=== PATIENT | female | born 1980 | race Caucasian/White ===

== ENCOUNTER 2018-07-29 18:53 | Inpatient (IN) | payer OTHER ==
[~2018-07-29] VITALS: Ht 177.8 cm; Wt 75.5 kg
[2018-07-29 18:56] VITALS: BP 124/74
[2018-07-29 19:22] LABS: URINE BILIRUBIN NEGATIVE (Negative); URINE BLOOD NEGATIVE (Negative); URINE CLARITY CLEAR; URINE COLOR YELLOW; URINE GLUCOSE-RANDOM* NEGATIVE (Negative); URINE KETONES TRACE (Negative); URINE LEUKOCYTES-REFLEX NEGATIVE (Negative); URINE NITRITE-REFLEX NEGATIVE (Negative); URINE PROTEIN (DIPSTICK) NEGATIVE (Negative); URINE SPECIFIC GRAVITY 1.025 (1.005-1.035); URINE UROBILINOGEN 0.2 E.U./dl (0.2-1.0)
[2018-07-29] MEDS ORDERED: FOCALIN10 MG PO (19:26)
[2018-07-29] MEDS ORDERED: WELLBUTRIN XL300 MG PO (19:27)
[2018-07-29] MEDS ORDERED: VIVACTIL10 MG PO (19:28)
[2018-07-29] MEDS ORDERED: NEXIUM40 MG PO (19:29)
[2018-07-29] MEDS ORDERED: REVIA 50 MG TAB50 M1 PO (19:29)
[2018-07-29] MEDS ORDERED: CELEBREX 200 M200 M1 PO (19:30)
[2018-07-29] MEDS ORDERED: XANAX1 MG PO (19:30)
[2018-07-29] MEDS ORDERED: BENADRYL25 MG PO (19:30)
[2018-07-29 19:32] LABS: ABSOLUTE NEUTROPHILS 6.8 thou/uL (1.4-8.2); BASOPHILS 0.2 % (0.0-2.0); EOSINOPHILS 2.1 % (0.0-3.0); HEMATOCRIT 43.9 % (37.0-47.0); LYMPHOCYTES 14.2 % (24.0-44.0); MCH 31.6 pg (26.0-34.0); MCHC 34.2 g/dL (28.0-37.0); MCV 92.5 fL (80.0-100.0); MONOCYTES 5.1 % (1.0-8.0); PLATELET COUNT 279 thou/uL (150-400); POLYS 78.4 % (36.0-66.0); RBC 4.74 mil/uL (4.20-5.00); RDW 13.8 % (10.5-14.5); WBC 8.7 thou/uL (4.0-11.0)
[2018-07-29 19:36] LABS: CALCIUM 8.9 mg/dL (8.5-10.1); CREATININE 0.9 mg/dL (0.6-1.0); POTASSIUM 3.3 mmol/L (3.5-5.1)
--- NOTE | 2018-07-29 19:36 | NUR ---
PATIENT TO RESTROOM EMERGENTLY FOR BOWEL MOVEMENT
[2018-07-29 19:42] LABS: ALBUMIN 3.7 g/dL (3.4-5.0); DIRECT BILIRUBIN 0.2 mg/dL (<0.1-0.3); TOTAL BILIRUBIN 0.6 mg/dL (<0.1-1.0)
[2018-07-29 21:46] VITALS: BP 113/74
[2018-07-29] MEDS ORDERED: ATIVAN1 MG PO (22:20)
--- NOTE | 2018-07-29 22:48 | NUR ---
PT arrived on unit as admit from ED into room 418. Pt A&Ox4, able to make needs known, ambulatory with steady gait. VSS. No SOA or difficulty breathing. Pt reports pain is considerably better now than upon arrival to ED. Pt reports nausea has also decreased and requested a snack. Pt orientated to room, call light, fall precautions and states understanding.Pt pleasant and cooperative with nursing hx and assessment. Pt made aware of when next anti nausea medication avilable. Pt currently resting in bed, call light within reach, will continue to be monitored.
[2018-07-30] VITALS (7 sets, daily range): BP systolic 109–115; BP diastolic 65–73
[2018-07-30 05:42] LABS: HEMATOCRIT 35.6 % (37.0-47.0); MCH 31.3 pg (26.0-34.0); MCHC 33.6 g/dL (28.0-37.0); RBC 3.83 mil/uL (4.20-5.00); RDW 13.4 % (10.5-14.5); WBC 7.3 thou/uL (4.0-11.0)
[2018-07-30] MEDS ORDERED: NORCO 5-325 TA1 EACH PO (13:53)
[2018-07-30] MEDS ORDERED: ONDANSETRON HCL4 M2 PO (13:53)
--- NOTE | 2018-07-30 15:52 | NUR ---
DISCHARGE PAPERS GONE OVER WITH PATIENT SIGNED AND COPY IN CHART ORIGINAL WITH PATIENT. ALL BELONGINGS PACKED AND SENT WITH PATIENT. IV ACSESS DCD AND RX GIVEN TO PATIENT.
--- NOTE | 2018-08-04 12:06 | PATH ---
[facility] [place] [address] PATHOLOGY RPT PROCEDURE Name: ADDIS GILES Room #: 418-P DIS IN M.R.#: [id number] Admission: 07/29/18 Date of : 78 Discharge: 07/30/18 Report #: [id number] Path Case #: [id number] [facility] Accession Number: [id number] . 01 Material submitted: . APPENDIX . 01 Clinical history: . Acute appendicitis . 02 Diagnosis: Appendix, appendectomy: - Mild acute appendicitis. - Appendiceal lumen impacted by fecal material and calcifications. . (IUV:mml; 08/01/2018) QL/08/01/2018 . 02 Electronically signed: . Promise Patterson MD, Pathologist NPI- [id number] . 01 Gross description: . The specimen is received in formalin, labeled "Addis Giles, appendix" and consists of an appendix measuring 7.5 cm in length and ranging from 0.4-0.6 cm in diameter with mesoappendix measuring 6.6 x 2.0 cm. The serosa is pacheco and smooth. The proximal margin is closed with balwinder and inked black. Sectioning reveals a dilated lumen (up to 0.5 cm) containing brown fecal material and no mucosal lesions. The specimen is entirely submitted in A1-A4. (SDY; 07/31/2018) SYU/SYU . 02 Pathologist provided ICD-10: K35.80 . 02 CPT . 702795 Specimen Comment: A courtesy copy of this report has been sent to Specimen Comment: [phone], , . Specimen Comment: Report sent to ,DR MORA / DR PRIETO Specimen Comment: A duplicate report has been generated due to demographic updates. Performed at: [address] [facility] [place] [id number] MD Flynn Figueroa MD Phone: [phone] [address] [address] PATHOLOGY RPT PROCEDURE Name: ADDIS GILES Room #: 418-P DIS IN M.R.#: [id number] Admission: 07/29/18 Date of : 78 Discharge: 07/30/18 Report #: [id number] Path Case #: [id number] Performed at: 02 [facility] [place] [address], [place], [place] [id number] MD Promise Patterson MD Phone: [phone]
== END 2018-07-30 16:00 | disposition home or self-care (01) | DRG 341 ==
LOC: ER 18:53 → 4E 21:11 → EROBS 21:11 → 4E 21:49 → ENTRNSPT 07-30 15:44 → EDTRNSPTSTS 07-30 15:45 → 4E 07-30 16:00
PROVIDERS: Nurse Practitioner; ADMIT Hospitalist
PROC: 0DTJ4ZZ Resection of Appendix, Percutaneous Endoscopic Approach (ICD-10-PCS; principal; 2018-07-30)
DX: K35.80 Unspecified acute appendicitis (principal); E43 Unspecified severe protein-calorie malnutrition; F32.9 Major depressive disorder, single episode, unspecified; K52.9 Noninfective gastroenteritis and colitis, unspecified; E87.6 Hypokalemia; E83.42 Hypomagnesemia; F41.9 Anxiety disorder, unspecified; E86.0 Dehydration; K21.9 Gastro-esophageal reflux disease without esophagitis; Z79.899 Other long term (current) drug therapy
CPT/HCPCS: 10084; 50010; 50101; 50249; 50411; 50555; 50558; 50739; 50740; 50962; 51975; 52265; 53307; 53310; 54022; 54118; 56525; 56526; 62110; 62900; 70005

== ENCOUNTER 2018-08-04 20:15 | Inpatient (IN) | payer OTHER ==
[~2018-08-04] VITALS: Ht 177.8 cm; Wt 74.8 kg
[~2018-08-04 20:15] MED LIST: ATIVAN1 MG PO; BENADRYL25 MG PO; CELEBREX 200 M200 M1 PO; FOCALIN10 MG PO; NEXIUM40 MG PO; NORCO 5-325 TA1 EACH PO; ONDANSETRON HCL4 M2 PO; REVIA 50 MG TAB50 M1 PO; VIVACTIL10 MG PO; WELLBUTRIN XL300 MG PO; XANAX1 MG PO
[2018-08-04 20:16] VITALS: BP 109/75
[2018-08-04 20:34] LABS: URINE BILIRUBIN NEGATIVE (Negative); URINE BLOOD 2+ (Negative); URINE CLARITY CLEAR; URINE COLOR YELLOW; URINE GLUCOSE-RANDOM* NEGATIVE (Negative); URINE KETONES NEGATIVE (Negative); URINE LEUKOCYTES-REFLEX 2+ (Negative); URINE NITRITE-REFLEX NEGATIVE (Negative); URINE PROTEIN (DIPSTICK) NEGATIVE (Negative); URINE SPECIFIC GRAVITY < 1.005 (1.005-1.035); URINE UROBILINOGEN 0.2 E.U./dl (0.2-1.0)
[2018-08-04 20:44] LABS: ABSOLUTE NEUTROPHILS 7.7 thou/uL (1.4-8.2); BASOPHILS 0.3 % (0.0-2.0); EOSINOPHILS 5.6 % (0.0-3.0); HEMATOCRIT 44.7 % (37.0-47.0); HEMOGLOBIN 15.4 gm/dL (12.0-15.0); LYMPHOCYTES 10.6 % (24.0-44.0); MCH 31.8 pg (26.0-34.0); MCHC 34.4 g/dL (28.0-37.0); MCV 92.4 fL (80.0-100.0); PLATELET COUNT 241 thou/uL (150-400); POLYS 78.5 % (36.0-66.0); RBC 4.84 mil/uL (4.20-5.00); RDW 13.4 % (10.5-14.5); WBC 9.8 thou/uL (4.0-11.0)
[2018-08-04 20:44] LABS: BACTERIA-REFLEX None Seen /HPF (None Seen); CASTS None Seen /LPF (None Seen); CRYSTALS None Seen /LPF (None Seen); SQUAMOUS 0-3 Few /LPF (0-3); URINE RBC 3-10 Few /HPF (0-2); URINE WBC-REFLEX >25 Many /HPF (0-5); YEAST-REFLEX Present (None Seen)
[2018-08-04 20:52] LABS: CALCIUM 8.7 mg/dL (8.5-10.1); CREATININE 0.9 mg/dL (0.6-1.0); POTASSIUM 3.6 mmol/L (3.5-5.1)
[2018-08-04 20:57] LABS: ALBUMIN 3.3 g/dL (3.4-5.0); TOTAL BILIRUBIN 0.4 mg/dL (<0.1-1.0); TOTAL PROTEIN 6.6 g/dL (6.4-8.2)
[2018-08-04 23:06] VITALS: BP 125/83
[2018-08-04 23:35] VITALS: BP 100/63
[2018-08-04 23:46] VITALS: BP 127/86
[2018-08-05 01:15] VITALS: BP 133/98
--- NOTE | 2018-08-05 01:44 | NUR ---
PT ARRIVED TO THE UNIT T AROUND 2340HRS. P ALERT AND ORIENTED. WAS IN THIS UNIT A FEW DAYS AGO POST OP LAP APPY. VSS. IVF INFUSING VIA LAC.AFEBRILE. PT ARRIVED TO UNIT BUT AFTER ABOUT AN HOUR WAS IN POSITION CRYING OUT LOUDLY DUE TO THE ABDOMINAL PAIN. PT IS PASSING GAS AND BELCHING.FENTANYL GIVEN WITH RELIEF.VITALS REMAIN WNL. DENIES NAUSEA AT THIS TIME.ADMISSION COMPLETED. PT APPEARS TO BE SLEEPING QUIETLY AT THIS TIME AFTER PAIN SUBSIDED. WILL CONTINUE WITH POC TILL EOS.
[2018-08-05 04:34] VITALS: BP 99/66
[2018-08-05 07:30] VITALS: BP 110/69
[2018-08-05 09:58] LABS: HEMATOCRIT 41.5 % (37.0-47.0); HEMOGLOBIN 13.9 gm/dL (12.0-15.0); MCH 31.3 pg (26.0-34.0); MCHC 33.4 g/dL (28.0-37.0); MCV 93.7 fL (80.0-100.0); RBC 4.43 mil/uL (4.20-5.00); RDW 13.5 % (10.5-14.5); WBC 7.5 thou/uL (4.0-11.0)
[2018-08-05 10:09] LABS: CALCIUM 7.6 mg/dL (8.5-10.1); CREATININE 0.9 mg/dL (0.6-1.0); POTASSIUM 3.7 mmol/L (3.5-5.1)
--- NOTE | 2018-08-05 14:48 | NUR ---
ASSUMED CARE OF PT AT 0700. ASSESSMENT COMPLETED. A&O,X4. C/O NAUSEA, ABD PAIN, AND FREQUENT LOOSE STOOLS. PAIN AND NAUSEA MEDS GIVEN ORDERED. PT DRANK ORAL CONTRAST FOR CT W/CONTRAST ORDERED. PT LEFT THE UNIT AT 10:00 AND RETURNED AT 10:36 VIA WHEELCHAIR IN STABLE CONDITION. DR. DAVIS AT BEDSIDE EARLIER, ADVANCED DIET TO CLEARS. PT TOLERATING CLEAR LIQUID DIET. STILL REPORTING SOME NAUSEA AND ABD PAIN. NO VOMITING NOTED. PT REPORTS 6 LOOSE STOOLS THROUGHOUT THE DAY. MAINTAINING C.DIFF PRECAUTIONS.
[2018-08-05 15:50] VITALS: BP 122/74
--- NOTE | 2018-08-05 18:21 | NUR ---
END OF SHIFT. NO CHANGE IN PT STATUS. PT C/O ABD PAIN/PRESSURE, NAUSEA, AND LOOSE STOOLS. NO VOMITING NOTED. PAIN AND NAUSEA MEDS GIVEN ORDERED. TOLERATING CLEARS. PHYSICIAN NOTIFIED ABOUT POC, NEW MED ORDER FOR GI CRAMPS. ADVANCING DIET AT TOLERATED. INSTRUCTED NO NEED FOR GI CONSULT AT THIS TIME.
[2018-08-05 20:00] VITALS: BP 120/75
--- NOTE | 2018-08-06 01:13 | NUR ---
PT IS MOSTLY SLEEPING. UP AD ALAINA IN ROOM.DENIES PAIN THIS FAR IN SHIFT. NO NAUSEA.FLUIDS INFUSING.AFEBRILE.NO CONCERNS AT THIS TIME.
[2018-08-06 04:30] VITALS: BP 115/78
[2018-08-06 07:55] VITALS: BP 105/63
[2018-08-06] MEDS ORDERED: BENTYL 10 MG CA10 M1 PO (09:30)
[2018-08-06 17:37] VITALS: BP 127/79
[2018-08-06 19:39] VITALS: BP 120/89
--- NOTE | 2018-08-06 19:54 | NUR ---
ASSUMED CARE OF PT AT 0700. ASSESSMENT COMPLETED. A&O,X4. UP AD ALAINA. NEGATIVE C.DIFF, PRECAUTIONS D/C. PHYSICIAN NOTIFIED TO RESTART HOME MEDS AND CONSULT GI PER PATIENT REQUEST. C/O NAUSEA AND ABD PAIN, MEDS GIVEN ORDERED. DIET CHANGED TO CLEARS, TOLERATING. NO LOOSE BOWEL MOVEMENTS NOTED, LAST BM YESTERDAY. FAMILY AT BEDSIDE THROUGHOUT THE DAY. NEW ONSET OF REDNESS AROUND FACE, NECK, AND ARMS WITH SOME ITCHING. PHYSICIAN NOTIFIED. NEW MED ORDER, SEE EMAR. POC NPO AFTER MIDNIGHT AND NO NARCOTICS AFTER MIDNIGHT FOR PROCEDURES IN AM. PT IN STABLE CONDITION. END OF SHIFT.
--- NOTE | 2018-08-07 01:22 | NUR ---
PT COMPLETED BOWEL PREP BY MIDNIGHT. SHE HAS STARTED HAVING BOWEL MOVEMENTS. RECEIVED IV FENTANYL SHORTLY BEFORE MIDNOC FOR A 4/10 PAIN. PT ALSO HAD SOME NAUSEA WITH ANTIEMETIC GIVEN X1. AFEBRILE. UP AD ALAINA. IVF INFUSING VIA LAC.PT NPO SINCE MIDNOC. AWARE OF PROCEDURES SCHEDULD FOR TOMORROW-PIPIDA, EGD AND COLONOSCOPY. MAKES NEEDS KNOWN.NO FURTHER CONCERNS AT THIS TIME.
[2018-08-07 06:19] VITALS: BP 114/67
[2018-08-07 07:50] VITALS: BP 128/79
--- NOTE | 2018-08-07 08:02 | NUR ---
ASSESMENT COMPLETED. VSS. A/O. C/O MILD PAIN THIS AM. NPO FOR PROCEDURE TODAY: PIPIDA/EGD AND POSSIBLE COLONOSCOPY. UP AD ALAINA IN ROOM. PT ANTICIPATING DC HOME TODAY IF TEST RESULTS ARE GOOD. PT IN NUCMED AT THIS TIME.
[2018-08-07] MEDS ORDERED: PERCOCET PO (11:34)
[2018-08-07] MEDS ORDERED: ZOFRAN ODT4 MG PO (11:34)
[2018-08-07 14:39] VITALS: BP 128/79
--- NOTE | 2018-08-07 15:27 | NUR ---
PT TOLERATING DIET. DC INSTRUCTIONS GIVEN TO PT. PT VERBALIZED UNDERSTANDING. PT TO DC HOME WITH SELF CARE.
--- NOTE | 2018-08-07 22:52 | P ---
[facility] [place] [address] [address] [place] [address] PROCEDURE REPORT Name: JANEL GILES Room #: 431-P [facility] IN M.R.#: [id number] Admission: 08/04/18 Attend Phys: Simone Cody MD Discharge: 08/07/18 Date of : 78 Report #: [id number] THIS REPORT FOR: //name// CC: Jb Spain DATE OF SERVICE: 08/07/2018 PROCEDURE: EGD with biopsy. PATIENT OF: Dr. Cody. INDICATION FOR PROCEDURE: The patient has epigastric pain, nausea and vomiting of undetermined etiology. Informed consent for this procedure was obtained prior to the administration of any medication. The risks of the procedure, which include bleeding, perforation, infection, complications of sedation and the possibility I could miss something have been explained to the patient and she has indicated her consent by signing. Propofol was slowly titrated before and during this procedure for patient comfort by the Anesthesia Service. The Olympus upper videoscope was introduced through the upper esophageal sphincter and advanced under direct visualization to the third portion of the duodenum. Findings were noted on withdrawal of the scope. The visualized portions of the duodenum appeared normal. Pylorus, normal mucosa. Antrum, normal mucosa. Body, normal mucosa. Cardia and fundus, normal mucosa. Retroflex view did not reveal any hiatal hernia. The scope was advanced down into the stomach again and biopsies were obtained x 2 for histopathology from the antrum of the stomach. Good hemostasis was noted after those biopsies. The scope was withdrawn. The patient went to the recovery area in stable condition. She tolerated the procedure well. IMPRESSION: Normal EGD to descending duodenum. Biopsies of the antrum pending. RECOMMENDATIONS: To await the biopsy results. The patient will need a colonoscopy in approximately 4-6 weeks after her appendiceal stump has had plenty of time to heal up. [facility] [address] [place] [address] PROCEDURE REPORT Name: JANEL GILES Room #: 431-P DIS IN M.R.#: [id number] Admission: 08/04/18 Attend Phys: Simone Cody MD Discharge: 08/07/18 Date of : 78 Report #: [id number] Thank you very much once again for allowing me to participate in her care. <ELECTRONICALLY SIGNED> By: Tameka Tsai DO 08/07/18 2252 [id number] Tameka Tsai DO /nt
--- NOTE | 2018-08-08 17:07 | PATH ---
[facility] [place] [address] [place] [address] PATHOLOGY RPT PROCEDURE Name: ADDIS GILES Room #: 431-P DIS IN M.R.#: [id number] Admission: 08/04/18 Date of : 78 Discharge: 08/07/18 Report #: [id number] Path Case #: [id number] [facility] Accession Number: [id number] . 01 Material submitted: . GASTRIC BIOPSY R/O H. PYLORI . 01 Clinical history: . Pre-OP DX: Nausea, vomiting, abdominal pain Post-OP DX: Normal EGD . 02 Diagnosis: Gastric mucosa, gastric rule out H. pylori, endoscopic biopsy: - No diagnostic abnormalities present. - Negative for Helicobacter pylori (properly controlled immunohistochemical stain performed). (IUV:spine specialist; 08/08/2018) MBR/08/08/2018 . 02 Electronically signed: . Promise Patterson MD, Pathologist NPI- [id number] . 01 Gross description: . Received in formalin labeled "Addis Giles, gastric BX, rule out H. pylori," is a single segment of pacheco soft tissue measuring 0.3 cm in maximum dimension. The specimen is entirely submitted in cassette A1. (TSD; 08/07/2018) TOB/TOB . 02 Pathologist provided ICD-10: R11.2, R10.9 . 02 CPT . 868622, [id number] Specimen Comment: A courtesy copy of this report has been sent to Specimen Comment: [phone], , . Specimen Comment: Report sent to ,DR PRIETO / DR MORA Performed at: [address], [place] [id number] MD Flynn Figueroa MD Phone: [phone] Performed at: [address] [id number] MD Promise Patterson MD Phone: [phone]
== END 2018-08-07 15:52 | disposition home or self-care (01) | DRG 391 ==
LOC: ER 20:15 → 4E 22:48 → EROBS 22:48 → 4E 23:28 → ENTRNSPT 08-07 15:29 → EDTRNSPTSTS 08-07 15:41 → 4E 08-07 15:52
PROVIDERS: Physician Assistant; Surgery; ADMIT Hospitalist
PROC: 0DB68ZX Excision of Stomach, Via Natural or Artificial Opening Endoscopic, Diagnostic (ICD-10-PCS; principal; 2018-08-07)
DX: K52.9 Noninfective gastroenteritis and colitis, unspecified (principal); E43 Unspecified severe protein-calorie malnutrition; K56.1 Intussusception; N39.0 Urinary tract infection, site not specified; F32.9 Major depressive disorder, single episode, unspecified; K21.9 Gastro-esophageal reflux disease without esophagitis; F41.9 Anxiety disorder, unspecified; Z90.49 Acquired absence of other specified parts of digestive tract; Z79.1 Long term (current) use of non-steroidal anti-inflammatories (NSAID); Z68.23 Body mass index [BMI] 23.0-23.9, adult; Z79.899 Other long term (current) drug therapy
CPT/HCPCS: 10084; 62110; 62900; 70005